=== PATIENT | male | born 1980 | race African-American/Black ===

== ENCOUNTER 2021-04-26 01:29 | Emergency (ER) | payer OTHER ==
[2021-04-26] MEDS ORDERED: KETOROLAC TROMETHAMINE 30 MG/1 ML VIAL IM ONE (02:11)
[2021-04-26] MEDS ORDERED: ACETAMINOPHEN 325 MG TABLET (FP) PO ONE (02:11)
[2021-04-26] MEDS ORDERED: LIDOCAINE 5% TOPICAL PATCH TP ONE (02:11)
[2021-04-26] MEDS ORDERED: ACETAMINOPHEN 325 MG TABLET (FP) ONE (02:39)
[2021-04-26] MEDS ORDERED: KETOROLAC TROMETHAMINE 30 MG/1 ML VIAL ONE (02:40)
[2021-04-26] MEDS ORDERED: LIDOCAINE 5% TOPICAL PATCH ONE (02:40)
[2021-04-26 02:55] VITALS: BP 110/91; PULSE 79; TEMP 98.7; BMI 23.9
== END 2021-04-26 03:30 | disposition home or self-care (01) ==
LOC: JER 01:29
PROC: 3E023GC Introduction of Other Therapeutic Substance into Muscle, Percutaneous Approach (ICD-10-PCS; principal; 2021-04-26)
DX: S29.012A Strain of muscle and tendon of back wall of thorax, initial encounter (principal); Y99.9 Unspecified external cause status
CPT/HCPCS: 93005; 93010; 99284-25

== ENCOUNTER 2023-09-07 01:29 | Emergency (ER) | payer OTHER ==
[2023-09-07 01:37] VITALS: BP 163/88; PULSE 80; RESP 18; TEMP 98; BMI 25.6
[2023-09-07] MEDS ORDERED: DIPHTH,PERTUSS(ACELL),TET 0.5 ML DISP.SYRIN IM ONE ×2 (05:19→05:25)
[2023-09-07] MEDS ORDERED: CEPHALEXIN MONOHYDRATE 500 MG CAPSULE (UD) PO ONE (05:23)
[2023-09-07] MEDS ORDERED: CEPHALEXIN MONOHYDRATE 500 MG CAPSULE (UD) ONE (05:25)
== END 2023-09-07 05:31 | disposition home or self-care (01) ==
LOC: JER 01:29
PROC: 0HQGXZZ Repair Left Hand Skin, External Approach (ICD-10-PCS; principal; 2023-09-07)
PROC: 3E0234Z Introduction of Serum, Toxoid and Vaccine into Muscle, Percutaneous Approach (ICD-10-PCS; 2023-09-07)
DX: S61.213A Laceration without foreign body of left middle finger without damage to nail, initial encounter (principal); X58.XXXA Exposure to other specified factors, initial encounter; Y99.0 Civilian activity done for income or pay
CPT/HCPCS: 12001-25; 73140-TC-LT-FY; 90471; 90715; 99283-25